=== PATIENT | male | born 1965 | race Caucasian/White ===

== ENCOUNTER 2022-02-04 10:58 | Day surgery (SDC) | payer OTHER, SELFPAY ==
--- NOTE | 2022-02-04 08:10 | OP_ITS ---
NAME OF PROCEDURE Kelman phacoemulsification, left eye, with a posterior chamber lens implant. PREOP DIAGNOSIS Nuclear sclerotic cortical cataract, left eye. ? POSTOP DIAGNOSIS Nuclear sclerotic cortical cataract, left eye. ?Repaired. ? COMPLICATIONS None. INDICATIONS FOR PROCEDURE The patient has experienced a painless progressive loss of vision in his left eye over the past several years interfering with his reading, driving, and day-to-day activities. ?Severity is 7/10. ?Yulia Gar MD was unable to improve his vision refractively. ?For that reason, the patient elected to proceed with surgical repair. ?He has disabling night glare as well as difficulty with reading. ? I have explained the risks, benefits, alternative treatments to him including possible loss of the eye, over correction, under correction, need for more surgery. ?The patient elects to proceed with surgical repair. PROCEDURE The patient received topical tropicamide, phenylephrine, Ketoralac, and topical anesthetic in the PAR prior to proceeding to the operating room. ?Once he was in the operating room suite, a pause was carried out to correctly identify the patient, correct procedure, cataract surgery on the left eye and correct lens implant power of 13.5 diopters. ?After sterile prep and drape, a lid speculum was placed, and a paracentesis created at 6 o'clock. ?The chamber was filled with OVD and entered temporally with a keratome. ?A continuous tear capsulotomy was performed. ?The nucleus was hydrodissected with local anesthetic and emulsified in a chop technique in the capsular bag. ?Residual cortex was cleaned from the eye. ?The capsular bag was expanded with OVD, and a 13.5 diopter ZCBOO lens implanted into the capsular bag. ?The residual OVD was clean. ?The incision hydrated and noted to be leak free. ?The patient was discharged in good condition, having tolerated the procedure well.
[2022-02-04] MEDS: TETRACAINE 0.5% OPHTH 1 DROP EYE-LEFT (10:34)
[2022-02-04] MEDS: KETOROLAC OPHTH 0.5% 1 DROP EYE-LEFT ×3 (11:30→11:45)
[2022-02-04] MEDS: SODIUM CHLORIDE 0.9 % (FLUSH) 10 ML SYRINGE IVF (11:42)
[2022-02-04 11:44] VITALS: BMI 37.8
--- NOTE | 2022-02-04 12:18 | SUR.PREOP ---
1115: The eye drops brought by the patient (Ketorolac and Prednisolone) are examined and I have determined they are labeled by the patient's pharmacy for this patient as prescribed by the surgeon. The bottles are intact, recently obtained and appear to be correct.
[2022-02-04] MEDS: BALANCED SALT IRRIG SOLN 15 ML EYE-LEFT (12:30)
[2022-02-04] MEDS: TETRACAINE 0.5% OPHTH 2 DROP EYE-LEFT (12:30)
[2022-02-04 12:43] VITALS: BP 116/75; PULSE 66; RESP 16; TEMP 36.9; O2SAT 97
--- NOTE | 2022-02-04 12:48 | W.ANESCHARGE ---
Anesthesia Charges Start Date/Time Anesthesia Start Date: 02/04/22 Anesthesia Start Time: 12:20 Stop Date/Time Anesthesia Stop Date: 02/04/22 Anesthesia Stop Time: 12:43 Summary Emergency: No
--- NOTE | 2022-02-04 14:06 | W.ANESCHARGE ---
Anesthesia Charges Start Date/Time Anesthesia Start Date: 02/04/22 Anesthesia Start Time: 12:20 Stop Date/Time Anesthesia Stop Date: 02/04/22 Anesthesia Stop Time: 12:43 Summary Emergency: No
--- NOTE | 2022-02-17 15:53 | SUR.PREOP ---
Chart closed by this nurse as bioinformatics assistant nurse with the patient was out and unable to close chart. End time based on patient into OR time.
== END 2022-02-04 13:10 | disposition home or self-care (01) ==
PROVIDERS: Visit Provider Ophthalmology
PROC: (CPT 66984; principal; 2022-02-04 12:15)
DX: H25.12 Age-related nuclear cataract, left eye (principal)
CPT/HCPCS: 66984; 142; A9270; J2250; J3010; S0020; V2632